=== PATIENT | female | born 1965 | race Caucasian/White ===

== ENCOUNTER 2016-04-02 13:53 | Emergency (ER) | payer MEDICARE ==
[2016-04-02 14:54] VITALS: BP 174/103; PULSE 63; TEMP 98.3; BMI 41.1
--- NOTE | 2016-04-02 14:54 | EDPRACDOC ---
- General Information Stated Complaint: RT DENTAL PAIN Time Seen by Provider: 04/02/16 14:48 Information Source: Patient Home Medications: Home Medications Ascorbate Calcium [Vitamin C] 500 mg PO DAILY 03/26/16 Carisoprodol 350 mg PO DAILY 03/26/16 Cholecalciferol (Vitamin D3) [Vitamin D3] 5,000 unit PO DAILY 03/26/16 Clindamycin [Cleocin] 150 mg PO Q6 #56 cap 03/26/16 Dexlansoprazole [Dexilant] 60 mg PO DAILY 03/26/16 Docusate Sodium [Colace] 100 mg PO BID 03/26/16 Ibuprofen 800 mg PO TID PRN 03/26/16 Minocycline HCl 100 mg PO DAILY 03/26/16 Topiramate 200 mg PO BID 03/26/16 Tramadol HCl [Ultram] 50 mg PO Q6 #5 tablet 03/26/16 Venlafaxine HCl ER [Effexor XR] 225 mg PO DAILY 03/26/16 Ketorolac Tromethamine 10 mg PO Q8H PRN #15 tab 04/02/16 Penicillin [Pen Vee K] 500 mg PO QID #56 tablet 04/02/16 Allergies/Adverse Reactions: Allergies Allergy/AdvReac Type Severity Reaction Status Date / Time amoxicillin [From Augmentin] Allergy Unknown Verified 03/26/16 17:39 ciprofloxacin [From Cipro] Allergy Unknown Verified 03/26/16 17:39 clavulanic acid Allergy Unknown Verified 03/26/16 17:39 [From Augmentin] gabapentin [From Neurontin] Allergy Unknown Verified 03/26/16 17:39 hydrocodone Allergy Unknown Verified 03/26/16 17:39 ziprasidone [From Geodon] Allergy Unknown Verified 03/26/16 17:39 - History of Present Illness Onset: weeks HPI: Pt states seen in ED 03-26-16 for same dental pain. Pt states antibiotics aren' t improving symptoms. C/o pain. Denies fever, sore throat, earache. Pt states had been on pcn in past and that worked better than the clindamycin she is currently taking. Pt states she has appointment with PCP tomorrow for BP evaluation. Pain Severity: Reports: Moderate Relevant History of: Reports: None Modifying Factors: improves with: Cold Associated Signs and Symptoms: Reports: None ED Past Medical History - History Reviewed Yes Nurses notes reviewed and agree except as marked - Patient Medical History Cardiac History: Reports: HypercholesterolemiaComment Only: Hypertension (Pt states she is borderline) Psychological History: Denies: Depression Surgical History: Reports: Tonsillectomy/Adnoidectomy - Social Medical History Smoking Status: Never smoker ETOH: None Substance Abuse: None EDM Review of Systems - Review of Systems Constitutional: No Symptoms Reported. negative: Fever, Chills, Weakness, Fatigue, Loss of Appetite Ears: No Symptoms Reported. negative: Pain, Hearing Loss, Drainage, Ear Pulling Throat: No Symptoms Reported. negative: Pain, Swelling Nose: No Symptoms Reported. negative: Congestion, Bleeding, Discharge, Injection, Swelling, Deformity, Ecchymosis, Tender, Abrasion, Laceration Mouth: Tooth Pain Respiratory: No Symptoms Reported. negative: Cough, Brassy Cough, Barky Cough, Shortness of Breath, Wheezing, Hemoptysis Neurological: Headache Integumentary: No Symptoms Reported. negative: Itching, Rash, Bruising, Wound Allergic/Immunologic: No Symptoms Reported. negative: Hives, Itching Hematologic: No Symptoms Reported. negative: Lymphadenopathy, Easy Bruising, Easy Bleeding Psychiatric: No Symptoms Reported. negative: Anxiety, Depression, Hallucinations, Insomnia, Suicidal - Physical Exam Constitutional: Alert (Awake), No apparent distress Oriented to: Time, Person, Place Last recorded Vital Signs: Oxygen Pulse Oxygen Saturation O2 Device Oxygen Flow Rate Fraction of Inspired Oxygen ( FIO2) - HEENT Head: Normal ( normocephalic) Eye Exam: Normal (PERRL, EOMI, Sclera white) Oropharynx: Normal (Pharynx:Moist without exudate,Gums-no swelling) Tympanic Membrane: Normal ENT EAC: Normal TMJ: Normal Nose: No Symptoms Reported (septum midline) Neck: Normal (FROM, trachea at midline) - Respiratory/Cardiovascular Respiratory: Normal - CTA (BBS clear to auscultation without adventitious sounds ) Cardiovascular: Normal (RRR without murmur, gallop or rub) - Integumentary Skin: Normal, Warm, Dry Lymphatics: Normal (no adenopathy) - Neurologic Memory Impaired: Normal Motor Function: Normal (Normal tone, Pulses 2+ No cyanosis or edema, FROM) Mood Description: Normal Perception: Normal ED Tooth Problem Exam - HEENT Face: Normal Gingiva: Normal Palate: Normal Mouth Range of Motion: Normal Sinuses: Normal Oropharynx: Normal Neck: Normal - Other Exam Other Exam Findings: diffuse caries throughout mouth - Differential Diagnosis Periapical Abscess, Periodontal Abscess Decision Time to Discharge: 14:51 - Departure Disposition: Home Condition: Good Final Diagnosis: Dental abscess, Dental caries Instructions: Dental Abscess (ED), Dental Caries (ED) Education/Counseling Given To: Patient Education/Counseling Given Regarding: Diagnosis, Treatment, Follow Up Referrals: Darren Benitez MD [Primary Care Provider] - One Week Prescriptions: Ketorolac Tromethamine 10 mg PO Q8H PRN #15 tab PRN Reason: Pain Penicillin [Pen Vee K] 500 mg PO QID #56 tablet Additional Instructions: You must follow up with a dentist as soon as possible, you may contact the [facility] at [phone] for assistance. Follow up with PCP for further evaluation of high blood pressure.
== END 2016-04-02 15:00 | disposition home or self-care (01) ==
LOC: EDMC 13:53
DX: K04.7 Periapical abscess without sinus (principal)
CPT/HCPCS: 99282